=== PATIENT | male | born 1935 | race Caucasian/White ===

== ENCOUNTER 2017-05-15 18:56 | Emergency (ER) | payer OTHER ==
[2017-05-15 18:56] VITALS: O2SAT 65
[~2017-05-15 18:56] MED LIST: ALBU8I INH; AMLO5TAB22 PO; ATOR40TA PO; CARV12.52 PO; COZA100T PO; HYDR12.56 PO; HYDR25TA35 PO; LEVA750T PO; OXYB5TAB PO; PRED50 PO; SYMB80AE INH; SYNT125T PO; Z.0.OXYGENDME NC
[2017-05-15] MEDS ORDERED: EPINEPHrine HCL (1:10,000) 1 MG/10 ML SYRINGE ONE (19:13)
--- NOTE | 2017-05-15 19:35 | PD ---
HPI Chief Complaint: Code Blue Time Seen by Provider: 19:17 Travel History International Travel<30 days: No Contact w/Intl Traveler<30days: No Traveled to known affect area: No History of Present Illness HPI The patient is an 81-year-old male who apparently was short of breath and came in to emergency department diaphoretic, he denied any chest pain. Shortly after he got into the bed he became pulseless and unconscious. His initial rhythm was PEA and later agonal rhythm/asystole. He went back into PEA. ACLS protocol was continued. Ultrasound showed extremely minimal ventricular contractions, not enough to open any valves. The patient remained pulseless during the entire episode in the emergency department. Initial oximetry reading was 65, just after the patient came into the emergency department. PFSH Past Medical History Autoimmune Disease: No Anxiety: No Depression: No Heart Rhythm Problems: Yes (RBBB) Cancer: No Cardiovascular Problems: Yes High Cholesterol: Yes COPD: Yes Diminished Hearing: No Genitourinary: No Hypertension: Yes Immune Disorder: No Musculoskeletal: No Neurologic: No Psychiatric: No Reproductive: No Respiratory: Yes Thyroid Disease: Yes Social History Alcohol Use: No Tobacco Use: No Substance Use: No Allergies-Medications (Allergen,Severity, Reaction): Coded Allergies: No Known Allergies (Unverified , 09/07/15) Reported Meds & Prescriptions Reported Meds & Active Scripts Active Symbicort (Budesonide/Formoterol Fumarate) 80 Mcg/4.5 Mcg Aer 2 Puff INH BID * SHAKE WELL BEFORE USE * Ventolin Hfa (Albuterol Sulfate) 8 Gm Aero 1 Puff INH Q4H PRN * SHAKE WELL BEFORE USE * Deltasone 50 Mg Tab (Prednisone) 50 Mg Tab 50 Mg PO DAILY 4 Days Oxygen (O2) (Oxygendme) Device 2 L NC CONTINUOUS Oxygen Concentrator Portable Gaseous 2 L/min via Nasal Cannula Continuous For 99 months Levaquin 750 Mg Tab (Levofloxacin) 750 Mg Tab 750 Mg PO DAILY 5 Days Reported Amlodipine Besylate 5 mg (Amlodipine Besylate) 5 Mg Tab 1 Tab PO DAILY Hctz (Hydrochlorothiazide) 12.5 Mg Cap 12.5 Mg PO DAILY Oxybutynin Chloride 5 Mg Tab 5 Mg PO BID Synthroid 125 mcg (Levothyroxine Sodium) 125 Mcg Tab 125 Mcg PO DAILY Atorvastatin 40 mg (Atorvastatin Calcium) 40 Mg Tab 40 Mg PO DAILY Hydralazine HCl 25 Mg Tab 25 Mg PO BID Carvedilol 12.5 mg (Carvedilol) 12.5 Mg Tab 1 Tab PO BID Cozaar (Losartan Potassium) 100 Mg Tab 100 Mg PO DAILY Review of Systems ROS Limitations: Unresponsive Physical Exam Narrative The patient is diaphoretic, pulseless, patient in color with no blood pressure. The cardiac rhythm initially showed PEA and then he had episodes of asystole/ agonal rhythm. Ultrasound showed no evidence of pericardial effusion and showed only minimal contractions and the ventricular chambers, not enough to open the valves. The resuscitation efforts were terminated at 1914. At that time the patient had been given ACLS protocol with approximately 5 doses of epinephrine. Lungs were clear to auscultation with bagging. Data Data Orders Epinephrine (1:10,000) Inj (Epinephrine (05/15/17 19:13) MDM Medical Decision Making Medical Screen Exam Complete: Yes Emergency Medical Condition: Yes Medical Record Reviewed: Yes Differential Diagnosis Asystole, PEA, sudden cardiac , congestive heart failure, Narrative Course The patient came in because of shortness of breath and suddenly went into PEA and then into asystole and then back into PEA. Ultrasound showed only minimal and ineffectual cardiac contractions. Impression: Sudden cardiac Diagnosis Primary Impression: Sudden cardiac Disposition: 20 Condition: Randy Chau MD May 15, 2017 19:35
[2017-05-15] MEDS ORDERED: LOSA100T PO (20:30)
[2017-05-15] MEDS ORDERED: ATOR40TA16 PO (20:30)
[2017-05-15] MEDS ORDERED: ASPI81CH CHEW (20:30)
[2017-05-15] MEDS ORDERED: LEVO125T4 PO (20:30)
[2017-05-15] MEDS ORDERED: HYDR25TA5 PO (20:30)
[2017-05-15] MEDS ORDERED: OXYB5TAB PO (20:30)
[2017-05-15] MEDS ORDERED: THEO200T9 PO (20:30)
[2017-05-15] MEDS ORDERED: CARV25TA PO (20:30)
[2017-05-15] MEDS ORDERED: OXYGEN NAS.CANULA (20:33)
[2017-05-15] MEDS ORDERED: VENTAER INH (20:33)
[2017-05-15] MEDS ORDERED: SYMB80AE INH (20:33)
== END 2017-05-16 00:15 | disposition expired ==
LOC: PHED 18:56
DX: I46.9 Cardiac arrest, cause unspecified (principal); I10 Essential (primary) hypertension; E07.9 Disorder of thyroid, unspecified; E78.00 Pure hypercholesterolemia, unspecified; Z86.79 Personal history of other diseases of the circulatory system; Z87.09 Personal history of other diseases of the respiratory system
CPT/HCPCS: 92950; 99285; J0171